=== PATIENT | male | born 1960 | race Caucasian/White ===

== ENCOUNTER → 2023-01-23 10:37 | Outpatient (CLI) | payer OTHER, SELFPAY ==
--- NOTE | 2023-01-23 10:40 | DI.RAD.S_ITS ---
4PROCEDURE: XR ELBOW RT MIN 3V INDICATIONS: Right elbow injury TECHNIQUE: 3 views of the elbow were acquired. COMPARISON: None. FINDINGS: Bones: No fractures or dislocations. No suspicious bony lesions. Soft tissues: No elbow joint effusion. No suspicious soft tissue calcifications. IMPRESSION: No acute bony abnormality. Dictated by: Alfredo Corbin M.D. on 01/23/2023 at 11:45 Approved by: Alfredo Corbin M.D. on 01/23/2023 at 11:45
== END ==
PROVIDERS: Family Provider Family Medicine; PCP Family Medicine; Referring Provider Registered Nurse; Visit Provider Registered Nurse
DX: M25.421 Effusion, right elbow (principal)
CPT/HCPCS: 73080

== ENCOUNTER → 2024-10-18 15:13 | Outpatient (CLI) | payer OTHER, SELFPAY ==
[2024-10-18 17:32] LABS: Add Manual Diff / Slide Review NO; Basophils Absolute Auto 0 /uL (0-100); Basophils Percent Auto 0.7 % (0-2); Eosinophils Absolute Auto 100 /uL (0-450); Eosinophils Percent Auto 1.2 % (2-4); Hemoglobin 15.9 g/dL (13.5-17.5); Lymphocytes Absolute Auto 1300 /uL (1100-4500); Lymphocytes Percent Auto 20.2 % (25-40); Mean Corpuscular HGB Conc 34.5 % (30-36); Mean Corpuscular Hemoglobin 30.8 PG (26-34); Mean Corpuscular Volume 89.3 fL (80-100); Monocytes Absolute Auto 600 /uL (0-900); Neutrophils Absolute Auto 4300 /uL (1500-7000); Neutrophils Percent Auto 68.9 % (50-75); Platelet Count 230 X10^3/uL (150-400); Red Blood Cell Count 5.15 X10^6/uL (4.5-5.9); Red Cell Distribution Width 12.8 % (11.6-14.8); White Blood Cell Count 6.3 X10^3/uL (4.5-11.0)
[2024-10-18 17:44] LABS: Prothrombin Time 11.1 SECONDS (9.4-12.5)
[2024-10-18 18:14] LABS: Alanine Aminotransferase 41 IU/L (<50); Albumin 4.9 g/dL (3.5-5.0); Albumin Globulin Ratio 1.8 (1.0-2.8); Alkaline Phosphatase 61 U/L (38-126); Aspartate Aminotransferase 34 IU/L (17-59); BUN Creatinine Ratio 14.1 (6-22); Bilirubin Total 0.8 mg/dL (0.2-1.3); Blood Urea Nitrogen 14 mg/dL (9-20); Carbon Dioxide 26 mmol/L (22-32); Chloride 103 mmol/L (98-107); Estimated Glomerular Filt Rate > 60 mL/min (>60); Globulin 2.7 g/dL (1.7-4.1); Glucose 105 mg/dL (80-110); HEMOLYSIS < 15 (0-50); Potassium 3.9 mmol/L (3.4-5.1); Sodium 139 mmol/L (137-145); Total Protein 7.6 g/dL (6.3-8.2)
[2024-10-18 18:27] LABS: Thyroid Stimulating Hormone 5.15 uIU/mL (0.47-4.68)
== END ==
PROVIDERS: Family Provider Family Medicine; PCP Family Medicine; Referring Provider Family Medicine; Visit Provider Family Medicine
DX: R23.3 Spontaneous ecchymoses (principal); S00.10XA Contusion of unspecified eyelid and periocular area, initial encounter; R03.0 Elevated blood-pressure reading, without diagnosis of hypertension
CPT/HCPCS: 36415; 80053; 84443; 85025; 85610

== ENCOUNTER → 2025-02-27 16:23 | Outpatient (CLI) | payer OTHER, SELFPAY ==
--- NOTE | 2025-02-27 16:24 | DI.US.S_ITS ---
PROCEDURE: US SCROTUM INDICATIONS: Mass of rt testicle TECHNIQUE: Real-time scanning was performed of the scrotum and testicles, with image documentation. Color and pulse Doppler interrogation was performed of both testicles. COMPARISON: None. FINDINGS: Right: Testicle is normal in size at 4.1 x 2.0 x 2.9 cm, and homogenous in echotexture. Epididymis is normal in overall size and morphology. Large hydrocele. Mild varicoceles. Overlying scrotal skin is normal in thickness. Left: Testicle is normal in size at 3.4 x 1.8 x 3.0 cm, and homogeneous in echotexture. Epididymis is normal in overall size and morphology. No hydrocele. Mild varicoceles. Overlying scrotal skin is normal in thickness. Doppler: Color and pulse Doppler demonstrate normal and symmetric arterial flow in both testicles. IMPRESSION: 1. Large right hydrocele. 2. Mild bilateral varicoceles. Dictated by: Sg Galvan M.D. on 02/27/2025 at 20:25 Approved by: Sg Galvan M.D. on 02/27/2025 at 20:27
== END ==
PROVIDERS: Family Provider Family Medicine; PCP Family Medicine; Referring Provider Family Medicine; Visit Provider Family Medicine
DX: N50.89 Other specified disorders of the male genital organs (principal); N43.3 Hydrocele, unspecified; I86.1 Scrotal varices
CPT/HCPCS: 76870; 93975

== ENCOUNTER 2025-03-25 13:46 | Day surgery (SDC) | payer OTHER, SELFPAY ==
[2025-03-19 09:44] VITALS: BMI 26.9
[2025-03-25] VITALS (8 sets, daily range): BP systolic 121–180; BP diastolic 67–91; PULSE 80–93; RESP 16–20; TEMP 36.2–36.6; O2SAT 94–99; BMI 25.7
--- NOTE | 2025-03-25 | PATH_ITS ---
[facility] Accession Number: [id number] No. of containers..01 Tissue . 01 Material submitted: . spermatic cord - RIGHT SPERMATOCELE SAC . 01 Diagnosis: RIGHT SPERMATOCELE, EXCISION: Consistent with spermatocele. No evidence of neoplasm. MRV 03/28/2025 1437 Local . 01 Electronically signed: . Norm Mcintyre MD, PhD, Pathologist NPI- [id number] . 01 Gross description: . Received in formalin with two identifiers and right spermatocele sac, is a olvera, membranous soft tissue fragment consistent with disrupted cyst wall measuring 6.0 x 0.6 x 0.3 cm. Inked blue and sectioning reveals thin light that average less than 0.1 cm thick with no thickening, excrescences, or cyst contents identified. Database Marketing Specialist sections are submitted in A1. ([id number]) /MRV 03/27/2025 1240 Local . 01 Pathologist provided ICD-10: N43.40 . 01 CPT . 582201 Specimen Comment: A courtesy copy of this report has been sent to [phone] Performed at: [address] [id number] MD Omar Gayle MD Phone: [phone]
[2025-03-25] MEDS: LACTATED RINGERS 1,000 ML 21 ML IV ×2 (14:11→15:28)
--- NOTE | 2025-03-25 14:18 | PM.PREOP ---
Pre-operative Note COVID-19 COVID-19 status: Not tested Interval Note History & Physical reviewed/Exam performed by Physician: Yes Changes to H&P: No
[2025-03-25] MEDS: CEFAZOLIN 2 GM/100 ML PREMIX 100 ML IV (14:59)
--- NOTE | 2025-03-25 15:05 | SUR.OPER ---
Supine on padded OR bed, head on pillow, arms secured on padded arm boards at <90 degrees abduction, legs uncrossed, safety belt at thigh, tape over blanket over lower legs.
[2025-03-25] MEDS: BUPIVACAINE 0.25% (PF) VIAL 30 ML INJ (15:10)
[2025-03-25] MEDS: BACITRACIN 28 GM OINT 1 APPLIC TOP (15:11)
--- NOTE | 2025-03-25 20:35 | P.OP_ITS ---
Operative Date/Time/Diagnoses Date of procedure: 03/25/25 Time of procedure: 15:00 Pre-op diagnosis: Right spermatocele Post-op diagnosis: same Procedure & Clinicians Procedure: Right spermatocelectomy Same procedure as scheduled: Yes Indications: This 64-year-old male presented with clip complaint of right hemiscrotal enlargement and increasing discomfort, was found by ultrasound to have findings consistent with a right spermatocele. He presents at this time for spermatocelectomy. Surgeon: Erik Flor Click Yes if Unassisted: Yes Anesthesia Type: General Operative Notes Findings: The testicle and epididymis were normal the findings are consistent with a spermatocele he avascular thin-walled sac with clear to slightly milky colored fluid attached at a thin neck to the epididymis. No other abnormalities were noted within the scrotum. Closure Type: primary Specimen(s): other (Spermatocele sac) Prosthetic devices, grafts, tissues, transplants, or devices: None Estimated Blood Loss (mL): 5 Procedure in detail: Procedure in detail: After informed consent was obtained, the patient was identified brought to the operating room where he was placed in supine position on the table once there anesthesia was induced and maintained. After ensuring an adequate level of anesthesia the patient was prepped shaved and draped in his sterile fashion. After prepping and draping, ensuring an adequate level of anesthesia, time-out, administration of IV antibiotics a right transverse hemiscrotal incision was made and carried down through the layers of the dartos. The testicle and spermatocele were delivered. The thin investing layers were dissected off of the clear avascular sac to where the ?dome was completely free of investing tissues. At this point the sac was entered to the fluid was drained and the investing layers were ?teased and sharply cut from the sac down to the neck at the epididymis. At this point at the neck it was tied off with a 2-0 Vicryl. And the sac was removed and sent to pathology. With this done the tunica vaginalis was then reapproximated over the testicle with a running 2-0 chromic gut suture the cord was infiltrated with 0.25% plain Marcaine and the testicle was returned to the scrotum. Dartos was then reapproximated with a running 2 0 Vicryl. Skin edges reapproximated with interrupted vertical mattress of 2-0 chromic and the skin infiltrated with 0.25% plain Mar wally. Bacitracin Telfa fluffs and scrotal support were applied. At this point the patient was awakened having tolerated the procedure well to be transferred to the postanesthesia care unit for recovery there were no complications Complications: none Post-operative Condition: stable Disposition: PACU Plan for aftercare: Patient will be discharged after recovery to follow up my office in 10-14 days.
== END 2025-03-25 18:21 | disposition home or self-care (01) ==
PROVIDERS: Family Provider Family Medicine; PCP Family Medicine; Referring Provider Urology; Visit Provider Urology
PROC: (CPT 54840; principal; 2025-03-25 15:15)
DX: N43.41 Spermatocele of epididymis, single (principal); N40.0 Benign prostatic hyperplasia without lower urinary tract symptoms
CPT/HCPCS: 54840; J0330; J0690; J1100; J2405; J2704; J3010

== ENCOUNTER → 2025-04-10 15:08 | Outpatient (CLI) | payer OTHER, SELFPAY | PROVIDERS: Family Provider Family Medicine; PCP Family Medicine; Visit Provider Urology | DX: R39.9 Unspecified symptoms and signs involving the genitourinary system (principal); N43.41 Spermatocele of epididymis, single | CPT/HCPCS: 51798; 81002; 87086 ==